=== PATIENT | male | born 1945 | race Caucasian/White ===

== ENCOUNTER 2019-10-21 12:37 | Observation (INO) | payer OTHER, MEDICARE ==
[2019-10-21] MEDS ORDERED: NA CHLORIDE 0.9% 1,000 ML ONE (13:58)
--- OUTSIDE RECORDS SUMMARY | 2019-10-21 14:07 | XMS REPORT | Continuity of Care Document ---
:1945 Author Organization [facility] t Address [address] [place] [address] Care Team Providers Name Role Phone Unavailable Unavailable Unavailable Problems Condition Condition Condition Status Onset Resolution Last Treating Co mments Source Name Details Category Date Date Treatment Clinician Date Bilateral Bilateral Diagnosis Active [facility] hearing hearing [facility] - loss, loss, Memoria unspecifie unspecifie l d hearing d hearing Outp ati loss type loss type ent Clinics Osteoarthr Osteoarthr Diagnosis Active [facility] itis of itis of [facility] - multiple multiple Memori a joints, joints, l unspecifie unspecifie Ou tpati d d ent osteoarthr osteoarthr Cl inics itis type itis type Coronary Coronary Diagnosis Active [facility] artery artery [facility] - disease of disease of [place] bypass bypass l graft of graft of [facility] chitimacha chitimacha ent heart with heart with Cl inics stable stable angina angina pectoris pectoris History of History of Diagnosis Active [facility] prostate prostate [facility] - cancer cancer Memoria l [facility] ent Clinics Stented Stented Problem Active [facility] coronary [facility] Acquired Acquired Diagnosis Active [facility] hypothyroi hypothyroi Tanika kes - dism dism [facility] Tobacco Tobacco Problem Active [facility] use use [facility] - disorder, disorder, John eliseo continuous continuous l [facility] ent Clinics Essential Essential Diagnosis Active [facility] hypertensi hypertensi Tanika kes - [facility] Primary Primary Diagnosis Active [facility] - Mem[facility] l [facility] GERD GERD Diagnosis Active [facility] without without [facility] - esophagiti esophagiti Me moria s s l [facility] ent Clin[facility] Mixed Mixed Diagnosis Active [facility] hyperlipid hyperlipid Tanika kes - emia emia Memoria l [facility] ent Clinics Unknown Unknown Diagnosis Active [facility] skin skin [facility] - lesion lesion Memoria l [facility] ent Clinics Benign Benign Problem Active [facility] prostatic prostatic Luke s - hyperplasi hyperplasi Me moria a with a with l lower lower [facility] urinary urinary ent tract tract Clinics symptoms, symptoms, symptom symptom details details unspecifie unspecifie d d Allergies, Adverse Reactions, Alerts Allergy Allergy Status Severity Reaction(s) Onset Inactive Treating Comm ents Source Name Type Date Date Clinician Erythrom Adverse Active Info Not [facility] t ycin Reaction Available [facility] - Memoria l [facility] Clinics Medications Ordered Filled Start Stop Current Ordering Indication Dosage Frequency Signature Comments Components Source Medication Medication Date Date Medication? Clinician (SIG) Name Name Clopidogrel Clopidogrel Yes Jerel [address] [facility] Bisulfate Bisulfate 10-19 Dominguez Luke s - 00:00: Memoria 00 l [facility] ent Clinics Amlodipine Amlodipine Yes Jerel [address] [facility] Besylate Besylate Dominguez [facility] - Memoria l [facility] ent [facility] Levothyroxi Levothyroxi Yes Jerel [address] [facility] ne Sodium ne Sodium Dominguez in the Tanika kes - morning on Memoria an empty l stomach [facility] ent Clinics Aspirin Aspirin Yes Jerel [address] [facility] Dominguez [facility] - Memoria l [facility] Clinics Glucosamine Glucosamine Yes Jerel [address] [facility] Chond MSM Chond MSM Dominguez Luke s - Formula Formula Memoria l [facility] ent Clinics Vitamin D3 Vitamin D3 Yes Jerel [address] [facility] Dominguez [facility] - Memoria l [facility]ics Vytorin Vytorin Yes Jerel [address] [facility] Dominguez [facility] - Memoria l [facility] Clinics Naproxen Naproxen Yes Jerel [address] Dominguez with food [facility] - or milk as Memoria needed l [facility] ent Clinics Omeprazole Omeprazole Yes Jerel [address] [facility] Dominguez 30 minutes [facility]ukes - before Memoria morning l meal [facility] Clinics Trazodone Trazodone Yes Jerel [address] [facility] HCl HCl Dominguez at bedtime [facility] - as needed Memoria l [facility] Clinics Nitrostat Nitrostat Yes Jerel [address] [facility] Dominguez [facility] - Memoria l [facility]ics Metoprolol Metoprolol Yes Jerel [address] [facility] Succinate Succinate Dominguez Luke s - ER ER Memoria l [facility] ent Clinics Tamsulosin Tamsulosin Yes Jerel [address] [facility] HCl HCl Dominguez [facility] - Memoria l [facility] Clinics Gabapentin Gabapentin Yes Jerel [address] [facility] Dominguez [facility] PreserVisio PreserVisio Yes Jerel as [facility] n AREDS 2 n AREDS 2 Dominguez directed [facility] ent Clinics Niacin ER Niacin ER Yes Jerel [address] [facility] Dominguez with food [facility] ent Clinics Fish Oil Fish Oil Yes Jerel [address] [facility] Dominguez [facility] ent Clinics Procedures This patient has no known procedures. Encounters Start End Encounter Admission Attending Care Care Encounter Source Date/Time Date/Time Type Type Clinicians Facility Department ID 2019-10-20 2019-10-20 [facility] [id number] [facility] [address] 10:30:00 10:30:00 t [employer] [facility] Results This patient has no known results.
--- OUTSIDE RECORDS SUMMARY | 2019-10-21 14:07 | XMS REPORT ---
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 Problem History of prostate cancer Z85.46 A ctive Assessment Stented coronary artery Z95.5 Acti ve Problem Acquired hypothyroidism E03.9 Acti ve Assessment Bilateral hearing loss, unspecified H91.93 Active hearing loss type Assessment Tobacco use disorder, continuous F17.209 Active Problem Essential hypertension I10 Activ e Problem Primary insomnia F51.01 Active Problem GERD without esophagitis K21.9 Act lavinia Problem Stented coronary artery Z95.5 Acti ve Problem Mixed hyperlipidemia E78.2 Active Assessment Acquired hypothyroidism E03.9 Acti ve Assessment GERD without esophagitis K21.9 Act lavinia Assessment 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 Assessment Primary insomnia F51.01 Active Assessment Essential hypertension I10 Activ e Assessment Unknown skin lesion L98.9 Active Assessment History of prostate cancer Z85.46 A ctive Assessment Benign prostatic hyperplasia with N40.1 Active lower urinary tract symptoms, symptom details unspecified Problem Tobacco use disorder, continuous F17.209 Active Assessment Osteoarthritis of multiple joints, M15.9 Active unspecified osteoarthritis type Assessment Mixed hyperlipidemia E78.2 Active Problem Benign prostatic hyperplasia with N40.1 Active lower urinary tract symptoms, symptom details unspecified Medications Medication Code Code Instructions Start End Status Dosage System Date Date Amlodipine ND 12189837577 10 MG Orally Active 1 ta blet Besylate Once a day Levothyroxine ND 50444751119 125 MCG Orally Active 1 tablet in Sodium Once a day the morning on an empty stomach Aspirin ND 28009616045 325 MG Orally Active 1 tabl et Once a day Glucosamine ND 58255234839 - Orally once a Active 1 tablet Chond MSM day Formula Vitamin D3 ND 61692387729 125 MCG (5000 Active 1 t ablet UT) Orally Once a day Vytorin ND 69687209770 10-20 MG Orally Active 1 ta blet Once a day Naproxen ND 57285621481 500 MG Orally Active 1 tab let every 12 hrs with food PRN or milk as needed Omeprazole ND 92750130319 40 MG Orally Active 1 ca psule Once a day 30 minutes before morning meal Trazodone HCl ND 23573055969 50 MG Orally Active 1 tablet at Once a day bedtime as needed Nitrostat ND 33285783380 0.4 MG Active 1 tablet Sublingual PRN CP Metoprolol ND 85599101899 50 MG Orally Active 1 ta blet Succinate ER Once a day Tamsulosin HCl ND 51472630720 0.4 MG Orally Active 1 capsule Once a day Gabapentin ND 80009908529 300 MG Orally Active 1 c apsule Once a day Clopidogrel ND 89632825095 75 MG Orally Oct 19, Active 1 t ablet Bisulfate Once a day 2019 PreserVision ND 68740136694 - Orally Active as dir ected AREDS 2 Niacin ER ND 91574585241 500 MG Orally Active 1 ta blet Once a day with food Fish Oil ND 47661344156 1200 MG Orally Active 1 ca psule Once a day Results No Known Results Summary Purpose [employer] Submission
[2019-10-21 14:16] LABS: Absolute Lymphocytes (CBC) 1.7 K/uL (0.7-4.9); Basophils % 0.6 % (0-1.3); Hematocrit 22.1 % (39.6-49.0); Lymphocytes % 23.3 % (15.3-44.8); MPV 8.8 fL (7.6-11.3); RBC Red Blood Cell Count 2.31 M/uL (4.33-5.43)
[2019-10-21 14:23] LABS: BUN Blood Urea Nitrogen 17 mg/dL (7-18); Bicarbonate 25 mmol/L (21-32); Glucose Level 118 mg/dL (74-106); Potassium 3.7 mmol/L (3.5-5.1); Sodium Level 144 mmol/L (136-145)
[2019-10-21] MEDS ORDERED: FAMOTIDINE 20 MG/2 ML VIAL IV ONE (15:19)
[2019-10-21] MEDS ORDERED: NA CHLORIDE 0.9% 500 ML ONE (15:19)
--- NOTE | 2019-10-21 15:45 | ER ---
Nurse's Notes [facility] Name: Rehan Fernandez Age: 74 yrs Sex: Male : 1945 Arrival Date: 10/21/2019 Time: 12:39 Bed 19 Private MD: Jerel Dominguez Diagnosis: Anemia, unspecified;GI Bleed,;Weakness Presentation: 10/20 12:59 Chief complaint: Patient states: Pt comes in from home. Dr. Dominguez advised pt [facility] for low H/H. " I need a transfusion". Coronavirus screen: Client denies travel out of the [place] in the last 14 days. At this time, the client does not indicate any symptoms associated with coronavirus-19. The client denies any previous COVID testing. Ebola Screen: Patient negative for fever greater than or equal to 101.5 degrees Fahrenheit, and additional compatible Ebola Virus Disease symptoms Patient denies exposure to infectious person. Patient denies travel to an Ebola-affected area in the 21 days before illness onset. Initial Sepsis Screen: Does the patient meet any 2 criteria? No. Patient's initial sepsis screen is negative. Does the patient have a suspected source of infection? No. Patient's initial sepsis screen is negative. Risk Assessment: Do you want to hurt yourself or someone else? Patient reports no desire to harm self or others. Onset of symptoms was October 16, 2019 at 20:00. 12:59 Method Of Arrival: Ambulatory [facility] 12:59 Acuity: ISAAC 3 ks7 13:03 Chief complaint: Patient states: Pt states he has felt weak x 1 week. AAO x 4, ks7 ambulatory. Triage Assessment: 13:02 General: Appears in no apparent distress. Behavior is calm, cooperative. Pain: Denies [facility] pain. Historical: - Allergies: 13:02 Clindamycin; ks7 - Home Meds: 13:41 metoprolol tartrate 50 mg Oral tab 1 tab once daily [Active]; tamsulosin 0.4 mg oral ks7 cp24 1 cap once daily [Active]; naproxen 500 mg Oral tab 1 tab 2 times per day [Active]; Vytorin 10-20 10-20 mg oral tab 1 tab once daily [Active]; omeprazole 40 mg Oral cpDR 1 cap once daily [Active]; niacin 500 mg Oral cpER 500 mg once daily [Active]; levothyroxine 125 mcg tab 1 tab once daily [Active]; trazodone 50 mg Oral tab 1 tab nightly [Active]; Nitrostat 0.4 mg SL subl as needed [Active]; Fish Oil 1,000 mg oral cap daily [Active]; Vitamin D3 Complete oral oral [Active]; aspirin 325 mg Oral TbEC 1 tab once daily [Active]; Glucosamine 500 mg oral tab [Active]; gabapentin 300 mg oral cap 1 cap [Active]; PreserVision AREDS 2 [phone] [id number]-mg oral cap [Active]; - PMHx: 13:02 Cancer; Myocardial infarction; ks7 - PSHx: 13:02 CABG; Heart stents; Prostate surgery; ks7 - Immunization history:: Adult Immunizations up to date. - Social history:: Smoking status: Patient reports the use of cigarette tobacco products, smokes one-half pack cigarettes per day. Screenin:10 Abuse screen: Denies threats or abuse. Denies injuries from another. Nutritional bp screening: No deficits noted. Tuberculosis screening: No symptoms or risk factors identified. Fall Risk None identified. Assessment: 13:10 General: Appears in no apparent distress. comfortable, Behavior is calm, cooperative, bp appropriate for age. Pain: Denies pain. Neuro: Reports weakness GENERALIZED x1 WK. Cardiovascular: No deficits noted. Respiratory: No deficits noted. GI: No signs and/or symptoms were reported involving the gastrointestinal system. : No signs and/or symptoms were reported regarding the genitourinary system. EENT: No deficits noted. Derm: No deficits noted. Musculoskeletal: No deficits noted. 15:10 Reassessment: PT TO CT. ADD'L LABS DRAWN AND SENT. bp 16:01 Reassessment: PT SEEN BY HOSPITALIST, ADMIT IN PROCESS. GI C/S PENDING. bp 17:39 Reassessment: HOSPITALIST AT B/S. ADMIT ON HOLD PER PT WISHES. bp 18:20 Reassessment: CONSENT FOR BLOOD SIGNED AND WITNESSED. ADMIT ON HOLD, PT TBDC AFTER 2 bp UNITS PRBC AND H/H CHECK. 18:30 Reassessment: TRANSFUSION INITIATED. PT ON CONTINUOUS SP02, NIBP AND EKG MONITORING. bp 19:25 General: Appears in no apparent distress. comfortable, Behavior is calm, cooperative. mg2 Pain: Denies pain. Neuro: Level of Consciousness is awake, alert, obeys commands, Oriented to person, place, time, situation. Cardiovascular: Capillary refill < 3 seconds. Respiratory: Airway is patent Respiratory effort is even, unlabored, Respiratory pattern is regular, symmetrical. GI: No signs and/or symptoms were reported involving the gastrointestinal system. GI: No signs and/or symptoms were reported involving the gastrointestinal system. EENT: No signs and/or symptoms were reported regarding the EENT system. Derm: Skin is pale. Musculoskeletal: Circulation, motion, and sensation intact. Capillary refill < 3 seconds. 20:30 Reassessment: Patient appears in no apparent distress at this time. Patient and/or mg2 family updated on plan of care and expected duration. Pain level reassessed. Patient is alert, oriented x 3, equal unlabored respirations, skin warm/dry/pink. 10/21 00:53 Reassessment: patient waiting for repeat cbc. mg2 01:44 Reassessment: patient received 2 units of PRBC. discharged. mg2 Vital Signs: 10/20 12:59 BP 116 / 58; Pulse 73; Resp 18; Temp 97.9(TE); Pulse Ox 99% on R/A; Pain 0/10; ks7 14:13 BP 92 / 46; Pulse 77; Resp 17; Pulse Ox 96% ; bp 15:10 BP 120 / 74; Pulse 59; Resp 16; Pulse Ox 97% ; bp 16:01 BP 119 / 64; Pulse 64; Resp 16; Pulse Ox 98% ; bp 17:30 BP 127 / 64; Pulse 63; Resp 16; Pulse Ox 100% ; bp 18:30 BP 126 / 73; Pulse 56; Resp 18; Temp 97.8; Pulse Ox 100% ; bp 19:00 BP 123 / 67; Pulse 56; Resp 18; Temp 98.1; Pulse Ox 100% on R/A; mg2 20:00 BP 121 / 82; Pulse 56; Resp 18; Temp 98.1; Pulse Ox 100% on R/A; mg2 21:10 BP 121 / 66; Pulse 63; Resp 18; Temp 98.2; Pulse Ox 100% on R/A; mg2 22:15 BP 133 / 76; Pulse 68; Resp 18; Temp 98.1; Pulse Ox 100% on R/A; mg2 23:15 BP 121 / 78; Pulse 73; Resp 18; Pulse Ox 100% on R/A; mg2 10/21 00:53 BP 126 / 78; Pulse 70; Resp 18; Pulse Ox 100% on R/A; mg2 ED Course: 10/20 12:39 Patient arrived in ED. ag5 12:40 Jerel Dominguez DO is Private Physician. ag5 12:50 Joao Osullivan MD is Attending Physician. kdr 13:01 Triage completed. ks7 13:04 Arm band placed on left wrist. ks7 13:08 Krishna Baird, JOHN is Primary Nurse. bp 13:10 Patient has correct armband on for positive identification. Bed in low position. Call bp light in reach. Side rails up X2. Adult w/ patient. 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 GUAIC POSITIVE. bp 13:59 Inserted saline lock: 20 gauge in right forearm, using aseptic technique. Blood bp collected. 15:29 CT Abd/Pelvis - IV Contrast Only In Process Unspecified. EDMS 15:44 Zaki Thomas DO is Hospitalizing Provider. kdr 22:30 Inserted saline lock: 22 gauge in left antecubital area, using aseptic technique. mg2 10/21 01:45 IV discontinued, intact, bleeding controlled, No redness/swelling at site. Pressure mg2 dressing applied. Administered Medications: 10/20 15:11 Drug: Pepcid 20 mg Route: IVP; Site: right forearm; bp 15:23 Follow up: Response: No adverse reaction bp 15:11 Drug: NS 0.9% 500 ml Route: IV; Rate: bolus; Site: right forearm; bp 22:30 Drug: Lasix 20 mg Route: IVP; Site: left antecubital; mg2 23:10 Follow up: Response: No adverse reaction mg2 23:23 Drug: Lasix 20 mg Route: IVP; Site: left antecubital; mg2 Outcome: 15:44 Decision to Hospitalize by Provider. kdr 10/21 01:45 Discharged to home ambulatory. mg2 Condition: stable Discharge instructions given to patient, Instructed on discharge instructions, follow up and referral plans. Demonstrated understanding of instructions, follow-up care. 01:45 Patient left the ED. mg2 Addendum: 10/26/2019 12:45 Addendum: COVID-19 Result: Negative result given to RN to notify pt. Notified pt of d m5 negative COVID 19 swab results. Pt advised that even with a negative test result they should remain in isolation until symptom free for 3 days without medication. Pt also advised to return to the ED for worsening symptoms. Signatures: Dispatcher [employer] EDAL Shari Pederson RN RN dm5 Joao Osullivan MD MD kdr Peltier, Brian, RN RN bp Louis Grbuer RN RN [facility] Aburto 5 Emma Vaca RN RN ks7
--- NOTE | 2019-10-21 15:45 | EDPHYS ---
Physician Documentation [facility] Name: Rehan Fernandez Age: 74 yrs Sex: Male : 1945 Arrival Date: 10/21/2019 Time: 12:39 Bed 19 Private MD: Alberto [facility] ED Physician Joao Osullivan HPI: 10/20 14:12 This 74 yrs old Male presents to ER via Ambulatory with complaints of Low kdr Hemoglobin Levels. 14:12 Dr. Dominguez had routine blood work drawn recently and noted his Hgb to be low. The kdr patient states that his BM this week have been normal but the week prior he felt poorly and had significant black diarrhea which has since resolved for the most part. Onset: The symptoms/episode began/occurred at an unknown time. Severity of symptoms: At their worst the symptoms were mild. It is unknown whether or not the patient has had similar symptoms in the past. 16:52 The patient has not recently seen a physician. The patient had melanotic stools and kdr diarrhea last week. The last time he had dark stools was on Saturday. Historical: - Allergies: 13:02 Clindamycin; ks7 - Home Meds: 13:41 metoprolol tartrate 50 mg Oral tab 1 tab once daily [Active]; tamsulosin 0.4 mg oral ks7 cp24 1 cap once daily [Active]; naproxen 500 mg Oral tab 1 tab 2 times per day [Active]; Vytorin 10-20 10-20 mg oral tab 1 tab once daily [Active]; omeprazole 40 mg Oral cpDR 1 cap once daily [Active]; niacin 500 mg Oral cpER 500 mg once daily [Active]; levothyroxine 125 mcg tab 1 tab once daily [Active]; trazodone 50 mg Oral tab 1 tab nightly [Active]; Nitrostat 0.4 mg SL subl as needed [Active]; Fish Oil 1,000 mg oral cap daily [Active]; Vitamin D3 Complete oral oral [Active]; aspirin 325 mg Oral TbEC 1 tab once daily [Active]; Glucosamine 500 mg oral tab [Active]; gabapentin 300 mg oral cap 1 cap [Active]; PreserVision AREDS 2 [id number] iy-ebdm-[id number]-mg oral cap [Active]; - PMHx: 13:02 Cancer; Myocardial infarction; ks7 - PSHx: 13:02 CABG; Heart stents; Prostate surgery; ks7 - Immunization history:: Adult Immunizations up to date. - Social history:: Smoking status: Patient reports the use of cigarette tobacco products, smokes one-half pack cigarettes per day. ROS: 16:52 Constitutional: Negative for fever, chills, and weight loss, Eyes: Negative for injury, kdr pain, redness, and discharge, ENT: Negative for injury, pain, and discharge, Neck: Negative for injury, pain, and swelling, Cardiovascular: Negative for chest pain, palpitations, and edema, Respiratory: Negative for shortness of breath, cough, wheezing, and pleuritic chest pain, Back: Negative for injury and pain, : Negative for injury, bleeding, discharge, and swelling, MS/Extremity: Negative for injury and deformity, Skin: Negative for injury, rash, and discoloration, Neuro: Negative for headache, weakness, numbness, tingling, and seizure activity. Psych: Negative for depression, anxiety, suicide ideation, homicidal ideation, and hallucinations, Allergy/Immunology: Negative for hives, rash, and allergies, Endocrine: Negative for neck swelling, polydipsia, polyuria, polyphagia, and marked weight changes, Hematologic/Lymphatic: Negative for swollen nodes, abnormal bleeding, and unusual bruising. 16:52 Abdomen/GI: Positive for diarrhea, black/tarry stool, Negative for abdominal pain, constipation, abdominal cramps, abdominal distension, dysphagia, hematemesis. Exam: 16:52 Constitutional: This is a well developed, well nourished patient who is awake, alert, kdr and in no acute distress. Head/Face: Normocephalic, atraumatic. Eyes: Pupils equal round and reactive to light, extra-ocular motions intact. Lids and lashes normal. Conjunctiva and sclera are non-icteric and not injected. Cornea within normal limits. Periorbital areas with no swelling, redness, or edema. Neck: Trachea midline, no thyromegaly or masses palpated, and no cervical lymphadenopathy. Supple, full range of motion without nuchal rigidity, or vertebral point tenderness. No Meningismus. Chest/axilla: Normal chest wall appearance and motion. Nontender with no deformity. No lesions are appreciated. Cardiovascular: Regular rate and rhythm with a normal S1 and S2. No gallops, murmurs, or rubs. Normal PMI, no JVD. No pulse deficits. Respiratory: Lungs have equal breath sounds bilaterally, clear to auscultation and percussion. No rales, rhonchi or wheezes noted. No increased work of breathing, no retractions or nasal flaring. Back: No spinal tenderness. No costovertebral tenderness. Full range of motion. Skin: Warm, dry with normal turgor. Normal color with no rashes, no lesions, and no evidence of cellulitis. MS/ Extremity: Pulses equal, no cyanosis. Neurovascular intact. Full, normal range of motion. Neuro: Awake and alert, GCS 15, oriented to person, place, time, and situation. Cranial nerves II-XII grossly intact. Motor strength 5/5 in all extremities. Sensory grossly intact. Cerebellar exam normal. Normal gait. Psych: Awake, alert, with orientation to person, place and time. Behavior, mood, and affect are within normal limits. 16:52 Abdomen/GI: Inspection: obese Bowel sounds: active, all quadrants, Palpation: soft, nontender, in all quadrants, Rectal exam: rectal tone normal, Stool: brown, guaiac positive. Vital Signs: 12:59 BP 116 / 58; Pulse 73; Resp 18; Temp 97.9(TE); Pulse Ox 99% on R/A; Pain 0/10; ks7 14:13 BP 92 / 46; Pulse 77; Resp 17; Pulse Ox 96% ; bp 15:10 BP 120 / 74; Pulse 59; Resp 16; Pulse Ox 97% ; bp 16:01 BP 119 / 64; Pulse 64; Resp 16; Pulse Ox 98% ; bp 17:30 BP 127 / 64; Pulse 63; Resp 16; Pulse Ox 100% ; bp 18:30 BP 126 / 73; Pulse 56; Resp 18; Temp 97.8; Pulse Ox 100% ; bp 19:00 BP 123 / 67; Pulse 56; Resp 18; Temp 98.1; Pulse Ox 100% on R/A; mg2 20:00 BP 121 / 82; Pulse 56; Resp 18; Temp 98.1; Pulse Ox 100% on R/A; mg2 21:10 BP 121 / 66; Pulse 63; Resp 18; Temp 98.2; Pulse Ox 100% on R/A; mg2 22:15 BP 133 / 76; Pulse 68; Resp 18; Temp 98.1; Pulse Ox 100% on R/A; mg2 23:15 BP 121 / 78; Pulse 73; Resp 18; Pulse Ox 100% on R/A; mg2 10/21 00:53 BP 126 / 78; Pulse 70; Resp 18; Pulse Ox 100% on R/A; mg2 MDM: 10/20 15:44 Patient medically screened. kdr 16:52 Data reviewed: vital signs, nurses notes, lab test result(s), radiologic studies. kdr Counseling: I had a detailed discussion with the patient and/or guardian regarding: the historical points, exam findings, and any diagnostic results supporting the discharge/admit diagnosis, lab results, radiology results, the need for outpatient follow up. 10/20 13:13 Order name: CBC with Diff; Complete Time: 15:06 kdr 10/20 13:13 Order name: Chem 7; Complete Time: 15:06 kdr 10/20 15:11 Order name: PT-INR [facility] 10/20 15:12 Order name: LFT's [facility] 10/20 15:45 Order name: PRBC [facility] 10/20 15:46 Order name: ABO/RH typing [facility] 10/20 15:46 Order name: Antibody Screen [facility] 10/20 16:17 Order name: Ferritin [facility] 10/20 16:17 Order name: Transferrin Sat/Iron Binding [facility] 10/20 16:17 Order name: Vitamin B12 Level [facility] 10/20 16:46 Order name: Urine Dipstick--Ancillary (enter results) bd 10/20 17:01 Order name: COVID-19 iw 10/20 17:08 Order name: Urine Dipstick-Ancillary [facility] 10/20 17:36 Order name: CORONAVIRUS [facility] 10/20 15:09 Order name: CT Abd/Pelvis - IV Contrast Only kdr 10/20 17:36 Order name: ABO/RH no charge [facility] 10/20 18:06 Order name: CORONAVIRUS [facility] 10/20 23:32 Order name: CBC with Diff: at 0100 mg2 10/21 01:00 Order name: CBC with Automated Diff EDMS Administered Medications: 15:11 Drug: Pepcid 20 mg Route: IVP; Site: right forearm; bp 15:23 Follow up: Response: No adverse reaction bp 15:11 Drug: NS 0.9% 500 ml Route: IV; Rate: bolus; Site: right forearm; bp 22:30 Drug: Lasix 20 mg Route: IVP; Site: left antecubital; mg2 23:10 Follow up: Response: No adverse reaction mg2 23:23 Drug: Lasix 20 mg Route: IVP; Site: left antecubital; mg2 Disposition: 10/21/19 15:44 Hospitalization ordered by Zaki Thomas for Observation. Preliminary diagnosis are Anemia, unspecified, GI Bleed,, Weakness. - Bed requested for Telemetry/MedSurg (observation). - Status is Observation. mg2 - Condition is Fair. - Problem is new. - Symptoms are unchanged. Signatures: Dispatcher [employer] EDMS Anastasiya Galindo, RN Joao Dumont MD MD kdr Lasagna, Tonya, RN RN tl1 Krishna Baird RN RN bp Louis Gruber RN RN mg2 Emma Vaca RN RN ks7 Corrections: (The following items were deleted from the chart) 16:36 15:44 Hospitalization Ordered by Zaki Thomas DO for Observation. Preliminary diagnosis is Anemia, unspecified; GI Bleed,; Weakness. Bed requested for Telemetry/MedSurg (observation). Status is Observation. Condition is Fair. Problem is new. Symptoms are unchanged. kdr 19:09 16:36 10/21/2019 15:44 Hospitalization Ordered by Zaki Thomas DO for Observation. tl1 Preliminary diagnosis is Anemia, unspecified; GI Bleed,; Weakness. Bed requested for Telemetry/MedSurg (observation). Status is Observation. Condition is Fair. Problem is new. Symptoms are unchanged. kl 10/21 01:45 0812 19:09 10/21/2019 15:44 Hospitalization Ordered by Zaki Thomas DO for mg2 Observation. Preliminary diagnosis is Anemia, unspecified; GI Bleed,; Weakness. Bed requested for Telemetry/MedSurg (observation). Status is Observation. Condition is Fair. Problem is new. Symptoms are unchanged. tl1
[2019-10-21 15:51] LABS: Protime INR 1.03
--- NOTE | 2019-10-21 15:54 | RAD REPORT ---
EXAM DESCRIPTION: CT - Abdomen Pelvis W Contrast - 10/21/2019 3:28 pm CLINICAL HISTORY: Abdominal pain /GI bleed/ prostate cancer COMPARISON: none. TECHNIQUE: Computed axial tomography of the abdomen pelvis was obtained. 100 cc Isovue-300 was admin istered intravenously. Oral contrast was not requested which limits evaluation of bowel. All CT scans are performed using dose optimization technique as appropriate and may include automated exposure control or mA/KV adjustment according to patient size. FINDINGS: The liver, spleen, pancreas, adrenal and kidneys appear unremarkable. There is no evidence of diverticulitis. No evidence of colitis. Spondylosis involves the lumbar spine resulting spinal stenosis. Internal radiation beams have been placed into very prostatic tissue. The wall of the distal stomach is markedly thickened. IMPRESSION: Marked thickening of the wall of the distal stomach may be secondary to gastritis or mas s
[2019-10-21 15:56] LABS: Albumin 3.2 g/dL (3.4-5.0); Bilirubin Direct 0.2 mg/dL (0-0.2); Bilirubin Total 0.4 mg/dL (0.2-1.0)
--- NOTE | 2019-10-21 16:46 | P.HP ---
Certification for Inpatient Patient admitted to: Observation With expected LOS: <2 Midnights Patient will require the following post-hospital care: None Practitioner: I am a practitioner with admitting privileges, knowledge of patient current condition, hospital course, and medical plan of care. Services: Services provided to patient in accordance with Admission requirements found in Title 42 Section 412.3 of the Code of Federal Regulations Patient History Date of Service: 10/21/19 Primary Care Provider: Dr. Dominguez Reason for admission: Fatigue, melena History of Present Illness: 74-year-old male with history of CAD, CABG, hypertension and tobacco/alcohol use. Patient reported diarrhea and melena about 10 days ago. He fell fatigue at that time. He reported that the diarrhea and melena resolve this past Saturday. He continued to have weakness. He saw his PCP who sending for lab. Hemoglobin was found to be 7.2. Patient was sent to the ER for further evaluation. Patient denies any fever, chills. Last BM shows no melena as per patient. Patient had positive guaiac stool in the emergency room. Patient with prior colonoscopy in [place] 3 years ago which was normal. In the ER patient was evaluated. Hemoglobin 7.2. Electrolytes unremarkable. CT scan shows thickening of the wall of the distal stomach indicative of gastritis. Patient was admitted for further evaluation. When I saw the patient ER, patient appeared stable. Patient admits smoking about a half a pack per day. He drinks gin regularly. Home medications list reviewed: Yes - Past Medical/Surgical History Diabetic: No -: Hypertension -: CAD with prior CABG x4 vessel -: Tobacco abuse -: Alcohol abuse -: CABG x4 vessel -: Prior cardiac stent -: Right knee replacement Psychosocial/ Personal History: Patient lives at home with - Family History Mother -: Heart disease, Hypertension - Social History Smoking Status: Light Tobacco smoker (1-9 cigarettes/day) Counseled patient to stop smoking for: less than 10 minutes Smoking therapy provided: Yes Patient receptive to therapy: Yes Alcohol use: Yes CD- Drugs: No Caffeine use: Yes Place of Residence: Home Review of Systems General: Weakness, As per HPI Eyes: Unremarkable ENT: Unremarkable Respiratory: Unremarkable Cardiovascular: Unremarkable Gastrointestinal: Melena, As per HPI Genitourinary: Unremarkable Musculoskeletal: Unremarkable Integumentary: Unremarkable Neurological: Unremarkable Lymphatics: Unremarkable Physical Examination - Physical Exam General: Alert, In no apparent distress, Oriented x3, Cooperative HEENT: Atraumatic Neck: Supple Respiratory: Clear to auscultation bilaterally, Normal air movement Cardiovascular: Normal pulses, Regular rate/rhythm Gastrointestinal: Normal bowel sounds, Soft and benign, Non-distended, No masses, No rebound, No guarding Integumentary: No tenderness/swelling, No erythema, No warmth, No cyanosis Neurological: Normal speech, Normal strength at 5/5 x4 extr, Normal tone, Normal affect - Studies Laboratory Data (last 24 hrs) 10/21/19 15:20: Total Bilirubin 0.4, AST 16, ALT 13, Alkaline Phosphatase 62 10/21/19 15:20: PT 12.1, INR 1.03 10/21/19 14:00: Sodium 144, Potassium 3.7, BUN 17, Creatinine 0.76, Glucose 118 H 10/21/19 14:00: WBC 7.3, Hgb 7.2 L*, Hct 22.1 L, Plt Count 196 Assessment and Plan - Plan Impression: Melena secondary to upper GI bleed likely gastritis with acute anemia Hypertension CAD with prior CABG Tobacco abuse Alcohol use Hyperlipidemia BPH Hypothyroidism Plan: Melena secondary to upper GI bleed likely gastritis with acute anemia: Patient will be admitted for further evaluation and treatment. Will transfuse 2 units of blood to maintain hemoglobin above 8.0. Case discussed with GI. If patient stable will consider discharge and have outpatient EGD on Saturday. If hemoglobin continues to drop EGD will be done in the hospital. Will continue to monitor closely. Will trend hemoglobin. Will provide Lasix after each unit of blood. Recheck hemoglobin after 2nd unit. Will provide IV Protonix twice daily. Anticipate improvement over the next 24 hr. Hypertension: Will review and restart home medication. CAD with prior CABG: Hold aspirin and Plavix at this time. Tobacco abuse: Tobacco cessation addressed in detail. Alcohol use: Alcohol cessation education provided Hyperlipidemia: Will need to restart home medication BPH: Obtain and restart home medication Hypothyroidism: Obtain and restart home medication. Discharge Plan: Home Plan to discharge in: 24 Hours - Advance Directives Does patient have a Living Will: No Does patient have a Durable POA for Healthcare: No - Code Status/Comfort Care Code Status Assessed: Yes (Patient is full code) Time Spent Managing Pts Care (In Minutes): 55
[2019-10-21 17:08] LABS: Urine Blood NEGATIVE (NEG); Urine Glucose NEGATIVE (NEG); Urine Protein NEGATIVE (NEG); Urine Specific Gravity 1.015 (1.005-1.030); Urine pH 5.5 (5.0-7.0)
[2019-10-21] MEDS ORDERED: NA CHLORIDE 0.9% 250 ML ONE ×2 (18:32→21:07)
[2019-10-21] MEDS ORDERED: FUROSEMIDE 20 MG/ 2ML VIAL ONE ×2 (22:35→23:31)
--- NOTE | 2019-10-22 00:54 | P.DS ---
Admission Date: 10/21/19 Discharge Date: 10/22/19 Primary Care Provider: Dr. Dominguez Reason for Admission: Fatigue, melena Procedures: Transfuse 2 units PRBCs Brief History of Present Illness: 74-year-old male with history of CAD, CABG, hypertension and tobacco/alcohol use. Patient reported diarrhea and melena about 10 days ago. He fell fatigue at that time. He reported that the diarrhea and melena resolve this past Saturday. He continued to have weakness. He saw his PCP who sending for lab. Hemoglobin was found to be 7.2. Patient was sent to the ER for further evaluation. Patient denies any fever, chills. Last BM shows no melena as per patient. Patient had positive guaiac stool in the emergency room. Patient with prior colonoscopy in [place] 3 years ago which was normal. In the ER patient was evaluated. Hemoglobin 7.2. Electrolytes unremarkable. CT scan shows thickening of the wall of the distal stomach indicative of gastritis. Patient was admitted for further evaluation. When I saw the patient ER, patient appeared stable. Patient admits smoking about a half a pack per day. He drinks gin regularly. Hospital Course: During this hospital course patient was transfused 2 units PRBCs. Patient tolerated transfusion well. Patient did not want to be admitted greater than 24 hr. States that he has a who has cancer and he is her transportation to chemotherapy. Patient states that his melena has resolved and he has had no noticeable blood in his stool. He was found to have a positive guaiac in the ER. Patient also had a colonoscopy 3 years ago which was normal. At this time patient is stable. Patient H&H improved from 7.2/22.1 to 9.6/28.4. He can be discharged home and follow up with his PCP in the next 2-3 days for which she verbalize understanding. <Adrián Merritt - Last Filed: 10/22/19 01:09> Admission Date: 10/21/19 Discharge Date: 10/22/19 Hospital Course: case discussed with PA. Agree with plan of care. Patient will need to follow up with GI on Saturday for EGD. I was able to speak to GI and he will plan to call patient to make sure he follows up to have EGD done. <Zaki Thomas - Last Filed: 10/22/19 16:26> Disposition: ROUTINE DISCHARGE Discharge Condition: GOOD General: Alert, In no apparent distress, Oriented x3 HEENT: Atraumatic, Normocephalic, PERRLA Neck: Supple, Other (Trachea midline) Respiratory: Clear to auscultation bilaterally, Normal air movement Cardiovascular: No edema, Normal pulses, Regular rate/rhythm, Normal S1 S2 Capillary refill: <2 Seconds Gastrointestinal: Normal bowel sounds, Hypoactive, Soft and benign Musculoskeletal: No clubbing, No swelling, No contractures, No erythema Integumentary: No rashes, No breakdown, No significant lesion, No tenderness/swelling Neurological: Normal gait, Normal speech, Normal strength at 5/5 x4 extr, Normal tone Laboratory Data at Discharge: WBC 7.3 K/uL (4.3-10.9) 10/21/19 14:00 Hgb 7.2 g/dL (13.6-17.9) L* 10/21/19 14:00 Hct 22.1 % (39.6-49.0) L 10/21/19 14:00 Plt Count 196 K/uL (152-406) 10/21/19 14:00 PT 12.1 SECONDS (9.5-12.5) 10/21/19 15:20 INR 1.03 10/21/19 15:20 Sodium 144 mmol/L (136-145) 10/21/19 14:00 Potassium 3.7 mmol/L (3.5-5.1) 10/21/19 14:00 BUN 17 mg/dL (7-18) 10/21/19 14:00 Creatinine 0.76 mg/dL (0.55-1.3) 10/21/19 14:00 Glucose 118 mg/dL (74-106) H 10/21/19 14:00 Total Bilirubin 0.4 mg/dL (0.2-1.0) 10/21/19 15:20 AST 16 U/L (15-37) 10/21/19 15:20 ALT 13 U/L (12-78) 10/21/19 15:20 Alkaline Phosphatase 62 U/L (45-117) 10/21/19 15:20 <Adrián Merritt - Last Filed: 10/22/19 01:09> Vital Signs/Physical Exam: Temp Pulse Resp BP Pulse Ox 98.1 F 70 18 126/78 10/21/19 22:15 10/22/19 00:53 10/22/19 00:53 10/22/19 00:53 Laboratory Data at Discharge: WBC 7.4 K/uL (4.3-10.9) 10/22/19 00:50 Hgb 9.6 g/dL (13.6-17.9) L 10/22/19 00:50 Hct 28.4 % (39.6-49.0) L D 10/22/19 00:50 Plt Count 202 K/uL (152-406) 10/22/19 00:50 PT 12.1 SECONDS (9.5-12.5) 10/21/19 15:20 INR 1.03 10/21/19 15:20 Sodium 144 mmol/L (136-145) 10/21/19 14:00 Potassium 3.7 mmol/L (3.5-5.1) 10/21/19 14:00 BUN 17 mg/dL (7-18) 10/21/19 14:00 Creatinine 0.76 mg/dL (0.55-1.3) 10/21/19 14:00 Glucose 118 mg/dL (74-106) H 10/21/19 14:00 Total Bilirubin 0.4 mg/dL (0.2-1.0) 10/21/19 15:20 AST 16 U/L (15-37) 10/21/19 15:20 ALT 13 U/L (12-78) 10/21/19 15:20 Alkaline Phosphatase 62 U/L (45-117) 10/21/19 15:20 <Zaki Thomas - Last Filed: 10/22/19 16:26> Patient Discharge Instructions: Follow-up with PCP to have follow-up H&H to check for blood levels. Patient may require 2nd colonoscopy if patient con tinues to have decreasing hemoglobin hematocrit. Diet: Regular Activity: Ad arnaldo Time spent managing pt's care (in minutes): 50 <Adrián Merritt - Last Filed: 10/22/19 01:09>
[2019-10-22 00:59] LABS: Absolute Lymphocytes (CBC) 1.7 K/uL (0.7-4.9); Basophils % 1.1 % (0-1.3); Hematocrit 28.4 % (39.6-49.0); Lymphocytes % 23.3 % (15.3-44.8); MPV 8.6 fL (7.6-11.3); RBC Red Blood Cell Count 3.09 M/uL (4.33-5.43)
[2019-10-22 01:59] VITALS: O2SAT 100
[2019-10-22 02:06] VITALS: TEMP 98.1
[2019-10-22 02:09] VITALS: BP 126/78
== END 2019-10-22 01:43 | disposition home or self-care (01) ==
LOC: ER 12:37 → ERHOLD 16:09
PROVIDERS: ADMIT Family Medicine; ATTEND Family Medicine
PROC: 30283B1 Transfusion of Nonautologous 4-Factor Prothrombin Complex Concentrate into Vein, Percutaneous Approach (ICD-10-PCS; principal; 2019-10-21)
DX: K92.1 Melena (principal); D64.9 Anemia, unspecified; I10 Essential (primary) hypertension; I25.10 Atherosclerotic heart disease of native coronary artery without angina pectoris; E78.5 Hyperlipidemia, unspecified; N40.0 Benign prostatic hyperplasia without lower urinary tract symptoms; E03.9 Hypothyroidism, unspecified; I25.2 Old myocardial infarction; Z72.89 Other problems related to lifestyle; Z20.828 Contact with and (suspected) exposure to other viral communicable diseases; F17.210 Nicotine dependence, cigarettes, uncomplicated; Z71.6 Tobacco abuse counseling; Z71.41 Alcohol abuse counseling and surveillance of alcoholic; Z95.1 Presence of aortocoronary bypass graft; Z95.5 Presence of coronary angioplasty implant and graft; Z88.3 Allergy status to other anti-infective agents; Z79.899 Other long term (current) drug therapy; Z82.49 Family history of ischemic heart disease and other diseases of the circulatory system
CPT/HCPCS: 36430; 85025 ×2; 80048; 36415; 86900; 86850; 85610; 86901; 80076; 81003; 82728; 82607; 83540; 84466; 74177; 99284; U0002; Q9967; J1940 ×2; G0378 ×2; P9016 ×2; J7050 ×2; J7040; J7030